=== PATIENT | female | born 1985 | race African-American/Black ===

== ENCOUNTER 2017-12-23 19:48 | Emergency (ER) | payer OTHER ==
[~2017-12-23] VITALS: Ht 170.2 cm; Wt 88.5 kg
[~2017-12-23 19:48] MED LIST: AUGMENTIN 875875 MG PO; CIPROFLOXACIN500 M1 PO; COMPAZINE10 MG PO; DIFLUCAN150 M1 PO; FLAGYL500 MG PO; IBUPROFEN 200200 M1 PO; LISINOPRIL20 MG PO; NORVASC5 MG PO
[2017-12-23 19:49] VITALS: BP 197/124
[2017-12-23 20:05] LABS: URINE BILIRUBIN NEGATIVE (Negative); URINE BLOOD 3+ (Negative); URINE CLARITY CLEAR; URINE COLOR YELLOW; URINE GLUCOSE-RANDOM* NEGATIVE (Negative); URINE KETONES 1+ (Negative); URINE NITRITE-REFLEX NEGATIVE (Negative); URINE PROTEIN (DIPSTICK) 2+ (Negative); URINE SPECIFIC GRAVITY >= 1.030 (1.005-1.035); URINE UROBILINOGEN 0.2 E.U./dl (0.2-1.0)
[2017-12-23 20:07] LABS: URINE LEUKOCYTES-REFLEX TRACE (Negative)
[2017-12-23 20:17] LABS: SQUAMOUS 4-10 Moderate /LPF (0-3)
[2017-12-23 20:18] LABS: BACTERIA-REFLEX None Seen /HPF (None Seen); CRYSTALS None Seen /LPF (None Seen); HYALINE CASTS 0-3 Few /LPF (None Seen); MUCUS 4-6 Moderate strn/LPF (None Seen); URINE RBC >20 Many /HPF (0-2); URINE WBC-REFLEX 6-15 Few /HPF (0-5); YEAST-REFLEX Present (None Seen)
[2017-12-23] MEDS ORDERED: MACROBID 100 M100 M1 PO (20:20)
[2017-12-23] MEDS ORDERED: PHENAZOPYRIDIN200 M2 PO (20:20)
== END 2017-12-23 20:31 | disposition home or self-care (01) ==
LOC: ER 19:48
PROVIDERS: Student in an Organized Health Care Education/Training Program
DX: N39.0 Urinary tract infection, site not specified (principal); I10 Essential (primary) hypertension

== ENCOUNTER 2018-11-08 14:05 | Emergency (ER) | payer OTHER ==
[~2018-11-08] VITALS: Ht 170.2 cm; Wt 86.2 kg
[~2018-11-08 14:05] MED LIST changes: +MACROBID 100 M100 M1 PO; +PHENAZOPYRIDIN200 M2 PO
[2018-11-08 14:24] VITALS: BP 181/108
== END 2018-11-08 16:28 | disposition home or self-care (01) ==
LOC: ER 14:05
DX: R51 Headache (principal); I10 Essential (primary) hypertension; R11.0 Nausea

== ENCOUNTER 2020-03-10 12:04 | Emergency (ER) | payer OTHER ==
[~2020-03-10] VITALS: Ht 170.2 cm; Wt 86.2 kg
[2020-03-10 12:43] LABS: URINE BILIRUBIN NEGATIVE (Negative); URINE BLOOD NEGATIVE (Negative); URINE CLARITY CLEAR; URINE COLOR YELLOW; URINE GLUCOSE-RANDOM* NEGATIVE (Negative); URINE KETONES NEGATIVE (Negative); URINE LEUKOCYTES-REFLEX TRACE (Negative); URINE NITRITE-REFLEX NEGATIVE (Negative); URINE PROTEIN (DIPSTICK) NEGATIVE (Negative); URINE SPECIFIC GRAVITY >= 1.030 (1.005-1.035); URINE UROBILINOGEN 0.2 E.U./dl (0.2-1.0)
[2020-03-10] MEDS ORDERED: NORVASC5 MG PO (14:18)
[2020-03-10 14:26] LABS: BASOPHILS 0.4 % (0.0-2.0); EOSINOPHILS 0.4 % (0.0-3.0); HEMATOCRIT 41.6 % (37.0-47.0); HEMOGLOBIN 13.7 gm/dL (12.0-15.0); LYMPHOCYTES 30.6 % (24.0-44.0); MCH 27.5 pg (26.0-34.0); MCHC 32.9 g/dL (28.0-37.0); MCV 83.5 fL (80.0-100.0); MONOCYTES 9.7 % (1.0-8.0); PLATELET COUNT 291 thou/uL (150-400); POLYS 58.9 % (36.0-66.0); RBC 4.98 mil/uL (4.20-5.00); RDW 14.5 % (10.5-14.5); WBC 6.8 thou/uL (4.0-11.0)
[2020-03-10 14:39] LABS: CALCIUM 9.2 mg/dL (8.5-10.1); CREATININE 0.8 mg/dL (0.6-1.0); POTASSIUM 3.7 mmol/L (3.5-5.1)
[2020-03-10 14:46] LABS: ALBUMIN 3.8 g/dL (3.4-5.0); TOTAL BILIRUBIN 0.4 mg/dL (0.2-1.0); TOTAL PROTEIN 8.1 g/dL (6.4-8.2)
[2020-03-10] MEDS ORDERED: NORCO 5-325 TA1 EAC2 PO (14:49)
[2020-03-10] MEDS ORDERED: FLAGYL500 M1 PO (14:49)
[2020-03-10 15:27] VITALS: BP 195/112
== END 2020-03-10 15:30 | disposition home or self-care (01) ==
LOC: ER 12:04
PROVIDERS: Physician Assistant
DX: N76.0 Acute vaginitis (principal); N83.202 Unspecified ovarian cyst, left side; I10 Essential (primary) hypertension